=== PATIENT | female | born 1965 | race Two or more races ===

== ENCOUNTER 2020-02-16 12:58 | Emergency (ER) | payer MEDICAID, OTHER ==
[~2020-02-16] VITALS: Ht 162.6 cm; Wt 59.0 kg
[2020-02-16] MEDS ORDERED: ACETAMINOPHEN/CODEINE#3 (300/30mg) TAB PO ONE ×2 (15:00→19:15)
[2020-02-16 17:51] LABS: Basophils # (auto) 0 10 ^3/uL (0-0.2); Basophils % (auto) 0.2 % (0.0-2.0); Eosinophils # (auto) 0 10 ^3/uL (0-0.8); Hematocrit 35.7 % (36.0-46.0); Hemoglobin 11.9 g/dL (12.2-16.2); Lymphocytes # (auto) 0.3 10 ^3/uL (0.4-5.4); Lymphocytes % (auto) 3.1 % (10.0-50.0); Mean Corpuscular Hemoglobin 28.7 pg (28.0-32.0); Mean Corpuscular Hgb Conc. 33.3 g/dL (32.0-36.0); Mean Corpuscular Volume 86.1 fL (80.0-100.0); Monocytes # (auto) 0.6 10 ^3/uL (0-1.3); Monocytes % (auto) 5.7 % (0.0-12.0); Nucleated Red Blood Cells % 0.1 %; Platelet Count (auto) 187 10^3/uL (140-450); Red Blood Cells 4.15 10^6/uL (4.0-5.20); Red Cell Distribution Width 14.5 % (11.8-14.3); White Blood Cell 9.9 10^3/uL (4.4-10.8)
[2020-02-16 18:07] LABS: Albumin 3.8 g/dL (3.4-5.0); Calcium 9.1 mg/dL (8.5-10.1); Potassium 3.8 mmol/L (3.5-5.1)
[2020-02-16 18:10] LABS: BUN/Creatinine Ratio 13.3; Bilirubin, Total 0.6 mg/dL (0.2-1.0)
[2020-02-16 22:38] LABS: INR 1.06 (0.9-1.15); Partial Thromboplastin Time 25.9 sec (23.0-31.2)
[2020-02-16 23:23] VITALS: BP 104/71
== END 2020-02-16 22:32 | disposition short-term general hospital (02) ==
LOC: EDBD 12:58 → ER 12:58
DX: S22.22XA Fracture of body of sternum, initial encounter for closed fracture (principal); S27.899A Unspecified injury of other specified intrathoracic organs, initial encounter; S27.329A Contusion of lung, unspecified, initial encounter; V49.9XXA Car occupant (driver) (passenger) injured in unspecified traffic accident, initial encounter; Y93.89 Activity, other specified; Y92.89 Other specified places as the place of occurrence of the external cause; Y99.8 Other external cause status
CPT/HCPCS: 12002; 36415; 71111; 71250; 80053; 85025; 85610; 85730; 93005